=== PATIENT | male | born 1960 | race Caucasian/White ===

== ENCOUNTER 2017-01-14 10:51 | Day surgery (SDC) | payer OTHER ==
[~2017-01-14] VITALS: Ht 177.8 cm; Wt 107.6 kg
[~2017-01-14 10:51] MED LIST: ASPI81 PO; BYST5TAB2 PO; CLOP75 PO; FENO50TA PO; QUIN40TA10 PO; ROSU40 PO
[2017-01-14 11:39] VITALS: BP 139/76; PULSE 49; RESP 18; TEMP 98.3; O2SAT 97
[2017-01-14] MEDS ORDERED: QUIN40TA2 PO (11:43)
[2017-01-14] MEDS ORDERED: PRAV80TA2 PO (11:43)
[2017-01-14] MEDS ORDERED: NITR1SUB3 SL (11:43)
[2017-01-14] MEDS ORDERED: ASPI1TAB69 PO (11:43)
[2017-01-14] MEDS ORDERED: AMLO10TA2 PO (11:43)
[2017-01-14] MEDS ORDERED: ISOS30TA3 PO (11:43)
[2017-01-14] MEDS ORDERED: BYST5TAB2 PO (11:43)
[2017-01-14 11:54] LABS: AUTOMATED NEUTROPHIL # 3.4 TH/MM3 (1.8-7.7); BASOPHIL # 0.1 TH/MM3 (0-0.2); EOSINOPHIL # 0.2 TH/MM3 (0-0.4); HEMATOCRIT 42.1 % (39.0-51.0); HEMO FLAGS DIFF FINAL; LYMPH % 24.9 % (9.0-44.0); LYMPHOCYTE # 1.4 TH/MM3 (1.0-4.8); MEAN CORPUSCULAR HGB CONC 34.5 % (32.0-36.0); NEUT % 60.1 % (16.0-70.0); PLATELET COUNT 133 TH/MM3 (150-450); RED BLOOD COUNT 4.84 MIL/MM3 (4.50-5.90); RED CELL DISTRIBUTION WIDTH 13.2 % (11.6-17.2); WHITE BLOOD COUNT 5.7 TH/MM3 (4.0-11.0)
[2017-01-14] MEDS ORDERED: NS 1000P @30 MLS/HR (KVO) IV SCH (12:00)
[2017-01-14 12:06] LABS: APTT (PATIENT) 25.5 SEC (24.3-30.1); INTERNATIONAL NORMALIZED RATIO 1.2 RATIO; PROTHROMBIN TIME - PATIENT 12.9 SEC (9.8-11.6)
[2017-01-14 12:21] LABS: BICARBONATE 28.7 MEQ/L (21.0-32.0); POTASSIUM 4.2 MEQ/L (3.5-5.1)
[2017-01-14] MEDS ORDERED: IOHEXOL 350 MG/ML 100 ML BTL (for Cath Lab) OTHER ONE (13:27)
[2017-01-14] MEDS ORDERED: IOHEXOL 350 MG/ML 50 ML BTL (for Cath Lab) OTHER ONE (13:27)
[2017-01-14] MEDS ORDERED: HEPARIN-NS/PF INJ 500 ML ONE (13:38)
[2017-01-14] MEDS ORDERED: MIDAZOLAM HCL 2 MG/2 ML VIAL ONE (13:40)
[2017-01-14 17:03] LABS: BLOOD, URINE NEG (NEG); GLUCOSE,URINE NEG (NEG); KETONE, URINE NEG (NEG); NITRITE,URINE NEG (NEG); URINE COLOR LIGHT-YELLOW (YELLW/STRAW)
[2017-01-14 17:04] LABS: COMMENT (UR) CULT NOT INDICATED; CULTURE IF INDICATED CULT NOT INDICATED
--- NOTE | 2017-01-14 17:18 | PD.CAR.PN ---
CVT Progress Note Subjective/Hospital Course: Pt examined and chart reviewed. OR Friday. RISK SCORES About the STS Risk Calculator Procedure: CAB Only Risk of Mortality: 0.312% Morbidity or Mortality: 4.986% Long Length of Stay: 1.239% Short Length of Stay: 75.969% Permanent Stroke: 0.307% Prolonged Ventilation: 2.871% DSW Infection: 0.165% Renal Failure: 0.842% Reoperation: 2.461% Objective: Vital Signs Date Time Temp Pulse Resp B/P Pulse Ox O2 Delivery O2 Flow Rate FiO2 01/14/17 16:01 Room Air 01/14/17 11:39 98.3 49 18 139/76 97 Labs: Laboratory Tests Test 01/14/17 01/14/17 11:36 16:43 White Blood Count 5.7 TH/MM3 (4.0-11.0) Red Blood Count 4.84 MIL/MM3 (4.50-5.90) Hemoglobin 14.5 GM/DL (13.0-17.0) Hematocrit 42.1 % (39.0-51.0) Mean Corpuscular Volume 87.0 FL (80.0-100.0) Mean Corpuscular Hemoglobin 30.0 PG (27.0-34.0) Mean Corpuscular Hemoglobin 34.5 % Concent (32.0-36.0) Red Cell Distribution Width 13.2 % (11.6-17.2) Platelet Count 133 TH/MM3 (150-450) Mean Platelet Volume 7.7 FL (7.0-11.0) Neutrophils (%) (Auto) 60.1 % (16.0-70.0) Lymphocytes (%) (Auto) 24.9 % (9.0-44.0) Monocytes (%) (Auto) 11.0 % (0.0-8.0) Eosinophils (%) (Auto) 3.0 % (0.0-4.0) Basophils (%) (Auto) 1.0 % (0.0-2.0) Neutrophils # (Auto) 3.4 TH/MM3 (1.8-7.7) Lymphocytes # (Auto) 1.4 TH/MM3 (1.0-4.8) Monocytes # (Auto) 0.6 TH/MM3 (0-0.9) Eosinophils # (Auto) 0.2 TH/MM3 (0-0.4) Basophils # (Auto) 0.1 TH/MM3 (0-0.2) CBC Comment DIFF FINAL Differential Comment Prothrombin Time 12.9 SEC (9.8-11.6) Prothromb Time International 1.2 RATIO Ratio Activated Partial 25.5 SEC Thromboplast Time (24.3-30.1) Sodium Level 140 MEQ/L (136-145) Potassium Level 4.2 MEQ/L (3.5-5.1) Chloride Level 103 MEQ/L (98-107) Carbon Dioxide Level 28.7 MEQ/L (21.0-32.0) Anion Gap 8 MEQ/L (5-15) Blood Urea Nitrogen 24 MG/DL (7-18) Creatinine 1.06 MG/DL (0.60-1.30) Estimat Glomerular Filtration 72 ML/MIN (>89) Rate Random Glucose 113 MG/DL (74-106) Calcium Level 9.1 MG/DL (8.5-10.1) Urine Color LIGHT-YELLOW (YELLW/STRAW) Urine Turbidity CLEAR (CLEAR) Urine pH 7.0 (5.0-8.5) Urine Specific [place] 1.034 (1.002-1.035) Urine Protein NEG mg/dL (NEG-TRACE) Urine Glucose (UA) NEG mg/dL (NEG) Urine Ketones NEG mg/dL (NEG) Urine Occult Blood NEG (NEG) Urine Nitrite NEG (NEG) Urine Bilirubin NEG (NEG) Urine Urobilinogen LESS THAN 2.0 MG/DL (LESS THAN 2.0) Urine Leukocyte Esterase NEG (NEG) Urine RBC LESS THAN 1 /hpf (0-3) Urine WBC 1 /hpf (0-5) Microscopic Urinalysis Comment CULT NOT INDICATED Result Diagram: 01/14/17 1136 01/14/17 1136 Mariah Valdes MD Jan 14, 2017 17:18
--- NOTE | 2017-01-14 18:16 | MB ---
cc: OCTAVIO MCINTOSH, YANNICK BANKS MD,IDA GARCIA DATE OF CONSULTATION: 01/14/[address] Reagan. REASON FOR CONSULTATION Symptomatic coronary artery disease. HISTORY OF PRESENT ILLNESS Mr. Marie is a very pleasant 56-year-old gentleman with a known history of significant coronary artery disease status post previous myocardial infarction with resultant percutaneous intervention with angioplasty and stenting on two prior occasions who now presents with recurrent chest pain with minimal exertion and shortness of breath. Given his past history, he has undergone further workup including a treadmill Cardiolite and an eventual coronary angiogram today which reveals severe three-vessel coronary artery disease with mild LV dysfunction but otherwise relative preserved ventricular function. I am now being consulted for surgical revascularization therapy. At present time he remains pain free, hemodynamically stable with no evidence of ongoing ischemia. PAST MEDICAL HISTORY Significant for - 1. Coronary artery disease status post PCI and acute myocardial infarction as described above. 2. Acute myocardial infarction. 3. Hypertension 4. Dyslipidemia. 5. Mitral valve prolapse. PAST SURGICAL HISTORY Remarkable for coronary angiography with multiple angioplasties as described above. ALLERGIES THE PATIENT REPORTS NO KNOWN DRUG ALLERGIES. MEDICATIONS ON ADMISSION 1. Baby Aspirin 81 mg daily. 2. Nitroglycerin sublingual p.r.n. 3. Isosorbide mononitrate ER 30 mg daily. 4. Pravastatin 80 mg daily. 5. Amlodipine 10 mg daily. 6. Nebivolol 5 mg daily. 7. Quinapril 40 mg daily. SOCIAL HISTORY Denies any history of smoking, alcohol use or illicit drug use. FAMILY HISTORY Heavily significant for coronary artery disease. REVIEW OF SYSTEMS As above, all other parameters are negative. PHYSICAL EXAMINATION VITAL SIGNS: He is 178 cm tall, weighs 107 kg. Blood pressure is 139/76 with a heart rate of 52 which is regular, respiratory rate is 18 and he is afebrile. HEENT: Normocephalic, atraumatic. Pupils round and reactive. Extraocular muscles intact. NECK: No cervical lymphadenopathy, carotid bruits or JVD. CARDIOVASCULAR: Regular rate and rhythm. Normal S1, S2 without gallops or rubs. There is a 1/6 systolic ejection murmur. LUNGS: Clear to auscultation bilaterally with good air exchange. ABDOMEN: Soft, nontender, nondistended. Normoactive bowel sounds. No hepatosplenomegaly. EXTREMITIES: Bilateral lower extremity pulses are intact without cyanosis, clubbing or edema. No venous varicosities. NEUROLOGIC: Oriented, intact with no focal deficits. IMPRESSION 1. Severe two-vessel coronary artery disease. 2. History of previous myocardial infarction. 3. History of prior stenting. 4. Dyslipidemia. 5. Hypertension. 6. Significant family history of coronary disease. PLAN The angiogram findings as well as clinical scenario were discussed in detail with the patient and his today. Therapeutic options available including coronary artery bypass grafting with possible transmyocardial laser revascularization (TMR) was discussed. In reviewing the coronary angiography, the LAD is diffusely diseased distally but in the midsegment it appears to be a suitable target as the diagonal, the RPDA, as well as the RPLV. The OM branch and circumflex arteries are very diffusely diseased and may or may not be bypassable. This will be explored in the operating room. If it is deemed that it is not bypassable, certainly that area will be treated with laser revascularization to avoid future angina from that muscle as well as creation of neoangiogenesis. The risks and the complications and benefits of the surgical procedure were discussed in detail and all questions answered. They appeared to comprehend the given information and wished to proceed with the planned operation. We will proceed with the surgical procedure as described above on Friday as a first case basis. In the meantime, we will obtain vein mapping, carotid duplex, as well as PFTs. Thank you for allowing me to participate in the care of this patient. Yannick THOMPSON /5:11 PM /5:24 PM
--- NOTE | 2017-01-14 20:53 | RADRPT ---
EXAM DATE/TIME: 01/14/2017 20:44 [facility] COMPARISON: No previous studies available for comparison. INDICATIONS : Evaluate for pneumothorax, pneumonia and communicable diseases. Pre-op for open-heart surgery. MEDICAL HISTORY : Hypertension. SURGICAL HISTORY : None. ENCOUNTER: Initial ACUITY: 1 day PAIN SCORE: 0/10 LOCATION: Bilateral chest FINDINGS: PA and lateral views of the chest demonstrate the lungs to be symmetrically aerated without evidence of mass, infiltrate or effusion. A coronary artery stent catheter is visualized. The cardiomediastin al contours are unremarkable. Osseous structures are intact. CONCLUSION: No acute disease. Dima Blankenship MD on January 14, 2017 at 20:49 Board Certified Radiologist. This report was verified electronically.
--- NOTE | 2017-01-14 21:22 | RADRPT ---
EXAM DATE/TIME: 01/14/2017 19:52 [facility] COMPARISON: No previous studies available for comparison. INDICATIONS : Preop CABG. MEDICAL HISTORY : Hypertension. Myocardial infarction. CAD. SURGICAL HISTORY : Cardiac stents. Cardia angiography. ENCOUNTER: Initial ACUITY: 1 day PAIN SCORE: 0/10 LOCATION: Bilateral neck PEAK SYSTOLIC VELOCITIES (cm/sec): ICA/CCA RATIO: Right: 0.9 Left: 1.1 ICA: Right: 71 Left: 88 CCA: Right: 82 Left: 81 ECA: Right: 89 Left: 111 VERTEBRAL: Right: 38 antegrade Left: 44 antegrade Elevated flow velocities and ICA/CCA ratios have been found to correlate with increased degrees of vessel stenosis, calculated as percentage of diameter relative to a normal segment of distal ICA/CCA FINDINGS: RIGHT CAROTID: Mild calcified plaque at the carotid bifurcation. No significant stenosis is visualized. The wavefor ms are within normal limits. LEFT CAROTID: Mild noncalcified plaque at the bifurcation. No significant stenosis is visualized. The waveforms ar e within normal limits. VERTEBRAL ARTERIES: Antegrade flow is seen in both vertebral arteries. MISCELLANEOUS: None. CONCLUSION: 1. Mild atherosclerotic changes at both carotid bifurcations. 2. No focal high grade or hemodynamically significant stenosis. Saúl Chung MD on January 14, 2017 at 21:19 Board Certified Radiologist. This report was verified electronically.
--- NOTE | 2017-01-14 21:25 | RADRPT ---
EXAM DATE/TIME: 01/14/2017 19:03 [facility] COMPARISON: No previous studies available for comparison. INDICATIONS : Preop CABG. MEDICAL HISTORY : Myocardial infarction. Hypertension. CAD. SURGICAL HISTORY : Coronary stents. Cardiac angiography. ENCOUNTER: Initial ACUITY: 1 day PAIN SCORE: 0/10 LOCATION: Bilateral leg. TECHNIQUE: Venous ultrasound of the left and right leg was performed from the inguinal ligament to the proximal calf. Real-time, color Doppler and spectral tracing, compression and augmentation techniques were us ed. FINDINGS: RIGHT LEG: There is normal compressibility of the deep venous system from the inguinal region to the proximal ca lf. No echogenic clot is seen in the lumen of the common femoral, femoral, popliteal, and posterior tibial veins. There is a normal response of the venous system to proximal and distal augmentation an d respiration. LEFT LEG: There is normal compressibility of the deep venous system from the inguinal region to the proximal ca lf. No echogenic clot is seen in the lumen of the common femoral, femoral, popliteal, and posterior tibial veins. There is a normal response of the venous system to proximal and distal augmentation an d respiration. CONCLUSION: No evidence of DVT. Saúl Chung MD on January 14, 2017 at 21:21 Board Certified Radiologist. This report was verified electronically.
--- NOTE | 2017-01-14 21:32 | RADRPT ---
EXAM DATE/TIME: 01/14/2017 19:20 [facility] COMPARISON: No previous studies available for comparison. INDICATIONS : Preop CABG. MEDICAL HISTORY : Myocardial infarction. Hypertension. CAD. SURGICAL HISTORY : Cardiac stents. Caronoary angiography. ENCOUNTER: Initial ACUITY: 1 day PAIN SCORE: 0/10 LOCATION: Bilateral leg. GREATER SAPHENOUS VEIN THIGH: PROXIMAL: Right 6 mm Left 7 mm MID: Right 3 mm Left 5 mm DISTAL: Right 4 mm Left 6 mm CALF: PROXIMAL: Right 4 mm Left 4 mm MID: Right 4 mm Left 3 mm DISTAL: Right 3 mm Left 4 mm FINDINGS: The venous system of the lower extremities are patent by color Doppler imaging. Measurements of the leg veins (in mm) are listed above. CONCLUSION: Venous mapping as above Saúl Chung MD on January 14, 2017 at 21:30 Board Certified Radiologist. This report was verified electronically.
[2017-01-14 22:21] LABS: HEMOGLOBIN A1a 0.8 %; HEMOGLOBIN A1b 0.9 %; HEMOGLOBIN Ao 85.1 %; HEMOGLOBIN F 0.9 %; HEMOGLOBIN LA1C 1.9 %; HEMOGLOBIN P3 3.8 %
--- NOTE | 2017-01-15 20:30 | EKG ---
Date Performed: 01/14/2017 Time Performed: 11:48:10 PTAGE: 56 years EKG: Sinus bradycardia with sinus arrhythmia Poor R wave progression - probable normal variant B orderline ECG PREVIOUS TRACING : 08/06/2011 05.09 Compared to prior tracing no significant change DOCTOR: Henrietta Reagan Interpretating Date/Time 01/15/2017 20:28:29
--- NOTE | 2017-01-16 13:11 | MA ---
cc: IDA LO DATE 01/14/2017 INDICATIONS Angina pectoris class 3, intermediate probability nuclear myocardial perfusion study, coronary artery disease, history of multivessel coronary stenting. PROCEDURE 1. Retrograde left heart catheterization with left ventriculography and selective coronary angiography 2. Angiography of the left internal mammary artery and right internal mammary artery 3. Moderate sedation ACCESS SITE Right femoral artery EQUIPMENT USED 5 Moroccan pigtail catheter, 5 Moroccan JL4 and AR modified coronary artery catheters. MEDICATIONS Versed IV, Fentanyl IV CONTRAST Omnipaque 125 cc COMPLICATIONS None BLOOD LOSS Less than 10 cc METHOD OF HEMOSTASIS Manual compression RESULTS HEMODYNAMICS Heart rate 65 beats per minute Left ventricular end-diastolic pressure 50 mmHg Left ventricle 120/15 Aorta 120/70/93 LEFT VENTRICULOGRAPHY Ejection fraction 45%. Wall motion focal anterolateral hypokinesis. No mitral regurgitation. CORONARY ANGIOGRAPHY Left main coronary artery patent. Left anterior descending coronary artery has 80% focal stenosis in the proximal portion, 30% in-stent restenosis in the mid portion. Distal and apical has 70% sequential stenosis. The first diagonal artery has 80% ostial stenosis. Second diagonal artery is patent. Left circumflex artery has 80% stenosis in the proximal portion and 60% stenosis in the mid portion. OM-1 has 95% stenosis in the proximal portion and 70% sequential stenosis in the distal portion. Right coronary artery is a dominant vessel with 60% in-stent restenosis in the mid portion, 80% stenosis in the mid-distal portion. PDA has 70% proximal stenosis. PLV has 95% proximal stenosis. ARANA and JOIE are patent. DIAGNOSIS 1. Severe multivessel coronary artery disease. 2. Mild left ventricular systolic dysfunction consistent with ischemic cardiomyopathy DISPOSITION Mr. Marie was found to have evidence of severe multivessel coronary artery disease. Dr. Valdes will be consulted for the consideration of coronary artery bypass. MD MONTY Fernandez/JUJU /3:38 PM /12:49 PM MTDMonica
--- NOTE | 2017-01-23 13:09 | RSPPFT ---
DATE OF PROCEDURE: 01/14/17 COMMENTS: Spirometry shows FVC of 3.0 at 67% of predicted, FEV1 of 2.4 at 67%, FEV1/FVC ratio is normal. Flow is normal at FEF 25-75. Flow volume loop indicates a normal pattern. IMPRESSION: 1. Normal spirometry. 2. Post-bronchodilator study was not done.
--- NOTE | 2017-01-29 08:13 | MD ---
cc: IDA LO DISCHARGE SUMMARY Mr. Marie underwent cardiac catheterization on 01/14/2017. He was found to have severe multivessel coronary artery disease. He was seen by Dr. Valdes for coronary bypass consideration. He was discharged home on aspirin, statin, beta fredy and nitrate. He was discharged home in stable condition. He will be seen back for coronary bypass with Dr. Valdes next week. MD MONTY Fernandez/JAMAR /8:14 PM /8:04 AM DANIEL
== END 2017-01-14 21:08 | disposition home or self-care (01) ==
LOC: HCAT 10:51 → HDIC 10:51 → HCAT 21:08
PROVIDERS: ATTEND Internal Medicine Interventional Cardiology
DX: I25.111 Atherosclerotic heart disease of native coronary artery with angina pectoris with documented spasm (principal); I25.2 Old myocardial infarction; I11.9 Hypertensive heart disease without heart failure; I51.89 Other ill-defined heart diseases; E78.5 Hyperlipidemia, unspecified; I34.1 Nonrheumatic mitral (valve) prolapse; Z79.82 Long term (current) use of aspirin; Z95.5 Presence of coronary angioplasty implant and graft; Z82.49 Family history of ischemic heart disease and other diseases of the circulatory system
CPT/HCPCS: 71020; 80048; 81001; 83036; 85025; 85610; 85730; 87641; 93005; 93458; 93880; 93970; 93998; 94010; C1769; C1893; J1644; J2250; J3010; J7030; Q9967

== ENCOUNTER 2017-01-16 16:40 | Inpatient (IN) | payer OTHER ==
[~2017-01-16] VITALS: Ht 177.8 cm; Wt 107.6 kg
[~2017-01-16 16:40] MED LIST changes: +AMLO10TA2 PO; +ASPI1TAB69 PO; -ASPI81 PO; -CLOP75 PO; -FENO50TA PO; +ISOS30TA3 PO; +NITR1SUB3 SL; +PRAV80TA2 PO; -QUIN40TA10 PO; +QUIN40TA2 PO; -ROSU40 PO
[2017-01-20] VITALS (16 sets, daily range): BP systolic 121–148; BP diastolic 55–84; PULSE 48–68; RESP 13–20; TEMP 97.4–98.2; O2SAT 89–99
[2017-01-20] MEDS ORDERED: ARTIFICIAL TEARS OPTH OINT 3.5 APPLIC/3.5 GM TUBO ONE (05:00)
[2017-01-20] MEDS ORDERED: MAGNESIUM SULFATE 1000 MG/2 ML VIAL (PED) IV ONE (05:00)
[2017-01-20] MEDS ORDERED: HEPARIN SODIUM - SQ 10,000 UNITS/ML VIAL SQ ONE (05:00)
[2017-01-20] MEDS ORDERED: GLYCOPYRROLATE 0.2 MG/ML VIAL IV ONE (05:00)
[2017-01-20] MEDS ORDERED: DEXTROSE 5% IN WATER 100ML INJ 100 ML IV ONE (05:00)
[2017-01-20] MEDS ORDERED: AMINOCAPROIC ACID INJ 250 MG/ML 20 ML VIAL IV ONE (05:00)
[2017-01-20] MEDS ORDERED: NITROGLYCERIN-DEXTROSE INJ 250 ML IV ONE (05:00)
[2017-01-20] MEDS ORDERED: METOPROLOL TARTRATE 25 MG TAB PO SCH (06:00)
[2017-01-20] MEDS: LACTATED RINGER'S 1000 ML IV SCH (06:00)
[2017-01-20] MEDS: SODIUM CHLORID 0.9% 500 ML IV SCH ×2 (06:00→22:40)
[2017-01-20] MEDS ORDERED: METOPROLOL TARTRATE 25 MG TAB PO PRN (06:00)
[2017-01-20] MEDS ORDERED: INSULIN HUMAN REGULAR 1,000 UNITS/10 ML VIAL SQ PRN (06:00)
[2017-01-20] MEDS ORDERED: SODIUM CHLORIDE 0.9% FLUSH 5 ML FLUSH IV FLUSH PRN ×2 (06:00→12:00)
[2017-01-20] MEDS ORDERED: ceFAZolin 2 GM PREMIX 50 ML IV SCH (06:00)
[2017-01-20] MEDS ORDERED: HEPARIN SODIUM - IV 10,000 UNITS/10 ML VIAL ONE (06:52)
[2017-01-20] MEDS ORDERED: VANCOMYCIN HCL 1000 MG VIAL ONE (06:52)
[2017-01-20] MEDS ORDERED: HEPARIN SODIUM - SQ 10,000 UNITS/ML VIAL ONE (06:52)
[2017-01-20] MEDS ORDERED: POTASSIUM CHLORIDE 20 MEQ/10 ML VIAL ONE ×2 (07:09)
[2017-01-20] MEDS ORDERED: PAPAVERINE 60 MG-NITROGLYCERIN 100 MCG-DILTIAZEM 100 MG in NS 100 ML IRRIGATION SCH ×4 (07:30)
[2017-01-20] MEDS ORDERED: CHLORHEXIDINE GLUCONATE 4% SOLN 120 ML BTL TOPICAL SCH (07:30)
[2017-01-20] MEDS ORDERED: INSULIN REGULAR 100 UNITS in NS 100 ML IV SCH (07:30)
[2017-01-20] MEDS ORDERED: CEFAZOLIN 500 MG in NS IRR BTL 500 ML IRRIGATION SCH (07:30)
[2017-01-20] MEDS: SODIUM CHLORIDE 0.9% FLUSH 5 ML FLUSH IV FLUSH SCH ×3 (09:00→21:17)
[2017-01-20] MEDS ORDERED: LACTATED RINGER'S 1000 ML INJ 500 ML IV PRN (11:51)
[2017-01-20] MEDS: DOBUTamine PREMIX DRIP 250 ML IV SCH (11:51)
[2017-01-20] MEDS ORDERED: DEXTROSE 50% IN WATER 50 ML VIAL(D50) IV PUSH PRN (12:00)
[2017-01-20] MEDS ORDERED: POTASSIUM CHLOR 20 MEQ PREMIX 100 ML IV PRN ×3 (12:00)
[2017-01-20] MEDS ORDERED: DEXMEDETOMIDINE INJ 50 ML IV SCH (12:00)
[2017-01-20] MEDS ORDERED: ALBUMIN HUMAN 5% 12.5 GM/250 ML BOTTLE IV PRN (12:00)
[2017-01-20] MEDS ORDERED: PHENYLEPHRINE INJ 40 MG in DEXTROSE 5% IN WATE 500 ML INJ 496 ML IV SCH ×2 (12:00)
[2017-01-20] MEDS ORDERED: MORPHINE SULFATE 4 MG/ML INJ IV PRN (12:00)
[2017-01-20] MEDS ORDERED: NITROGLYCERIN-DEXTROSE INJ 250 ML IV SCH (12:00)
[2017-01-20] MEDS ORDERED: DOPamine INJ PREMIX 500 ML IV SCH (12:00)
[2017-01-20] MEDS ORDERED: ONDANSETRON HCL 4 MG/2 ML VIAL IV PUSH PRN (12:00)
[2017-01-20] MEDS ORDERED: CALCIUM CHLORIDE 10% 1 GRAM/10 ML VIAL IV PRN (12:00)
[2017-01-20] MEDS ORDERED: hydrALAZINE HCL 20 MG/ML VIAL IV PRN (12:00)
[2017-01-20] MEDS ORDERED: MAGNESIUM SULFATE INJ 2 GM in SODIUM CHLORIDE 0.9% INJ 100 ML IV PRN ×4 (12:00)
[2017-01-20] MEDS ORDERED: EPINEPHrine (1:1000) INJ 4 MG in DEXTROSE 5% IN WATER INJ 246 ML IV SCH ×2 (12:00)
[2017-01-20] MEDS ORDERED: POTASSIUM CHLORIDE 20 MEQ CONTROLLED RELEASE TAB PO PRN ×2 (12:00)
[2017-01-20] MEDS ORDERED: ACETAMINOPHEN 325 MG TAB PO PRN (12:00)
[2017-01-20] MEDS ORDERED: ACETAMINOPHEN 650 MG SUPP RECTAL PRN (12:00)
[2017-01-20] MEDS ORDERED: INSULIN REGULAR (IV INFUSION) 100 UNITS in SODIUM CHLORIDE 0.9% INJ 99 ML IV SCH (12:00)
[2017-01-20] MEDS ORDERED: CLEVIDIPINE INJ 50 ML IV SCH (12:00)
[2017-01-20] MEDS ORDERED: METOPROLOL TARTRATE 5 MG/5 ML VIAL IV PUSH PRN (12:00)
[2017-01-20] MEDS ORDERED: MEPERIDINE HCL 25 MG/ML VIAL IV PRN (12:00)
[2017-01-20] MEDS ORDERED: Post-op Orders (for Pharmacy) MISC OTHER ONE (12:00)
--- NOTE | 2017-01-20 12:00 | PD.OP ---
cc: Mariah Valdes MD; Henrietta Reagan MD Operative Report Date of Surgery: Jan 20, 2017 Preoperative Diagnosis: Postoperative Diagnosis: Procedure: 1. Off-pump Coronary Artery Bypass Grafting x 4 with left internal mammary artery (ARANA) to left anterior descending (LAD), reverse saphenous vein graft to Diagonal 1, sequential reverse saphenous vein graft to the RPDA and to the RPLB branches of the RCA 2. Right Leg Endoscopic Vein Mertens 3. Transmyocardial Laser Revascularization (Lateral Wall) 4. Intraoperative Vein Mapping. . Surgeon: Mariah Valdes Passenger Locomotive Engineer(s): Carlotta Borja Operation and Findings: PREPROCEDURE DIAGNOSES 1. Severe Multi Vessel Coronary Artery Disease 2. In-stent Restenosis 3. Mild Left Ventricular Dysfunction POSTPROCEDURE DIAGNOSES Same SURGICAL PROCEDURE 1. Off-pump Coronary Artery Bypass Grafting x 4 with left internal mammary artery (ARANA) to left anterior descending (LAD), reverse saphenous vein graft to Diagonal 1, sequential reverse saphenous vein graft to the RPDA and to the RPLB branches of the RCA 2. Right Leg Endoscopic Vein Mertens 3. Transmyocardial Laser Revascularization (Lateral Wall) 4. Intraoperative Vein Mapping. SURGEON Mariah Valdes MD CLOTH COLORS EXAMINER MIGUEL Us, [facility] ANESTHESIA General endotracheal ENTRY LEVEL AUTOMOTIVE TECHNICIAN GE[place]IA Wright MD PREPARATION ChloraPrep. COUNTS Needle, sponge, and instrument counts were correct. DRAINS Two 32-Thai mediastinal tubes. COMPLICATIONS None. INDICATIONS FOR PROCEDURE The patient is a 56-year-old presenting with chest pain. Patient was noted to have multi-vessel coronary artery disease with mild LV dysfunction. The patient is being brought to the operating room for surgical revascularization therapy. PROCEDURE Patient was brought to the operating room and placed supine on the OR table. Following the induction of adequate general endotracheal anesthesia and placement of appropriate monitoring devices, intraoperative vein mapping was performed which revealed suitable-caliber conduit in the right lower extremity. The patient was then prepped and draped in standard sterile fashion. Next, 2500 units of intravenous heparin was given. The right greater saphenous vein was harvested endoscopically. This appeared to be a good-caliber conduit. Simultaneously, a median sternotomy was performed and the left internal mammary artery dissected free off the posterior sternal table. The patient was systemically heparinized and anticoagulation monitored by serial ACT measurements. The internal mammary artery had good pulsatile flow in it and was a decent-caliber conduit. The pericardium was then divided in the midline, the cradle created and targets analyzed. At this point, all anastomoses were performed in a beating-heart fashion using the Maquet stabilizing system. The left internal mammary artery was anastomosed to the mid LAD in an end-to-side fashion using 7-0 Prolene. Segment of saphenous vein graft was then anastomosed to the diagonal 1 in an end-to-side fashion using 7-0 Prolene. The next segment was anastomosed sequentially to the RPDA in a uinz-te-dica fashion and to the RPLB in an end-to-side fashion using 7-0 Prolene. The OM/Circumflex territory was explored and the OM1 was noted to be very small and heavily calcified throughout its course, making it non-bypassable. The proximal anastomoses were then constructed to the ascending aorta in a running manner using 6-0 Prolene. All anastomotic sites were inspected and appeared to be hemostatic and patent. TMR was performed to the lateral wall in the Circumflex/OM territory. 13 transmural channels were created using the Cryolife probe. Protamine solution was given. Strict hemostasis was assured. The closure was undertaken. 2 chest tubes were placed. The pericardium was reapproximated in the midline. The sternum was approximated using sternal wires. The muscular and fascial layer were then closed in 3 layers. The endoscopic vein harvest site was closed in 2 layers. The patient tolerated the procedure well and was transferred to CVICU in stable condition. Mariah Valdes MD Jan 20, 2017 12:00
[2017-01-20] MEDS ORDERED: fentaNYL CITRATE 1000 MCG/20 ML VIAL ONE (12:38)
[2017-01-20] MEDS ORDERED: MIDAZOLAM HCL 5 MG/5 ML VIAL ONE (12:38)
--- NOTE | 2017-01-20 12:58 | RADRPT ---
EXAM DATE/TIME: 01/20/2017 12:38 [facility] COMPARISON: CHEST PA & LAT, January 14, 2017, 20:44. INDICATIONS : Post op CABG. MEDICAL HISTORY : Hypertension. SURGICAL HISTORY : CABG. ENCOUNTER: Initial ACUITY: 1 day PAIN SCORE: Non-responsive. LOCATION: Bilateral chest FINDINGS: A single view of the chest demonstrates interval surgery with intact median sternotomy wires. Left-si ded thoracostomy tube without pneumothorax. Mediastinal drain is present. Right IJ central venous cat heter projects over the central venous system. Endotracheal tube is appropriately positioned above th e jose. Nasogastric tube crosses the GE junction with the tip in the proximal stomach. Heart size is prominent. Increased interstitial markings are characteristic of some degree of vascula r congestion or volume overload. CONCLUSION: 1. Postoperative changes with intact median sternotomy wires. Appropriate position of life support tu bes. 2. Cardiomegaly with interstitial prominence characteristic of some degree of vascular congestion or volume overload. No pneumothorax. Tate Khan MD on January 20, 2017 at 12:54 Board Certified Radiologist. This report was verified electronically.
[2017-01-20] MEDS: ACETAMINOPHEN 1000 MG/100 ML VIAL IV SCH ×3 (13:18→23:09)
[2017-01-20] MEDS ORDERED: SODIUM CHLORIDE 0.9% INJ 100 ML IV ONE (13:26)
[2017-01-20] MEDS ORDERED: LACTATED RINGER'S 1000 ML INJ 2,000 ML IV ONE (13:26)
[2017-01-20] MEDS ORDERED: PROTAMINE SULFATE 250 MG/25 ML VIAL IV ONE (13:26)
[2017-01-20] MEDS ORDERED: NORMOSOL R INJ 2,000 ML IV ONE (13:26)
[2017-01-20] MEDS ORDERED: SODIUM CHLORID 0.9% 500 ML INJ 500 ML IV ONE (13:26)
[2017-01-20] MEDS ORDERED: SODIUM CHLOR 0.9% 250 ML INJ 250 ML IV ONE (13:26)
[2017-01-20] MEDS: KETOROLAC TROMETHAMINE 30 MG/ML (IVP) VIAL IV PUSH PRN ×2 (13:30→21:16)
[2017-01-20] MEDS: CALCIUM CHLORIDE INJ 1 GM in SODIUM CHLORIDE 0.9% INJ 100 ML IV PRN ×2 (14:31→17:24)
[2017-01-20] MEDS ORDERED: RESP: ALBUTEROL 2.5 MG/IPRATROPIUM 0.5 MG NEB (PRN) NEB (15:00)
[2017-01-20] MEDS ORDERED: RESP: RACEPINEPHRINE 2.25% 0.5 ML NEB NEB PRN (15:00)
[2017-01-20] MEDS: ceFAZolin 2 GM PREMIX 50 ML IV SCH ×2 (16:02→23:09)
[2017-01-20] MEDS: RESP: ALBUTEROL 2.5 MG/IPRATROPIUM 0.5 MG NEB (SCH) NEB ×2 (16:05→20:52)
[2017-01-20] MEDS: AMIODARONE 200 MG TAB PO SCH (21:16)
[2017-01-20] MEDS: oxyCODONE/ACETAMINOPHEN 5 MG/325 MG TAB PO PRN (23:09)
[2017-01-21] VITALS (22 sets, daily range): BP systolic 128–159; BP diastolic 68–90; PULSE 55–82; RESP 16–22; TEMP 97.3–99.6; O2SAT 91–95
[2017-01-21] MEDS: DOBUTamine PREMIX DRIP 250 ML IV SCH (03:28)
[2017-01-21] MEDS: RESP: ALBUTEROL 2.5 MG/IPRATROPIUM 0.5 MG NEB (SCH) NEB ×4 (03:33→19:53)
[2017-01-21] MEDS: oxyCODONE/ACETAMINOPHEN 5 MG/325 MG TAB PO PRN ×6 (03:44→20:49)
[2017-01-21] MEDS: LACTATED RINGER'S 1000 ML IV SCH (04:55)
[2017-01-21 05:08] LABS: HEMATOCRIT 35.7 % (39.0-51.0); MEAN CELL VOLUME 85.7 FL (80.0-100.0); MEAN CORPUSCULAR HEMOGLOBIN 29.4 PG (27.0-34.0); MEAN CORPUSCULAR HGB CONC 34.3 % (32.0-36.0); PLATELET COUNT 139 TH/MM3 (150-450); RED BLOOD COUNT 4.16 MIL/MM3 (4.50-5.90); RED CELL DISTRIBUTION WIDTH 13.3 % (11.6-17.2); REVIEW FLAG FINAL; WHITE BLOOD COUNT 14.1 TH/MM3 (4.0-11.0)
[2017-01-21 05:19] LABS: BICARBONATE 24.3 MEQ/L (21.0-32.0); MAGNESIUM 1.7 MG/DL (1.5-2.5); POTASSIUM 4.3 MEQ/L (3.5-5.1)
--- NOTE | 2017-01-21 05:49 | RADRPT ---
EXAM DATE/TIME: 01/21/2017 05:11 [facility] COMPARISON: CHEST SINGLE AP, January 20, 2017, 12:38. INDICATIONS : Post CABG. MEDICAL HISTORY : Hypertension. SURGICAL HISTORY : CABG. ENCOUNTER: Subsequent ACUITY: 2 days PAIN SCORE: 0/10 LOCATION: Bilateral chest FINDINGS: Right jugular line, mediastinal tube and left-sided chest tube are noted. The endotracheal tube has b een removed as well as the enteric tube. I do not see a pneumothorax. The lungs are clear. Cardiomega ly. CONCLUSION: Clear lungs. Marty Wayne MD on January 21, 2017 at 5:47 Board Certified Radiologist. This report was verified electronically.
[2017-01-21] MEDS: PANTOPRAZOLE SOD 40 MG DELAYED RELEASE TAB PO SCH (06:00)
[2017-01-21] MEDS: ACETAMINOPHEN 1000 MG/100 ML VIAL IV SCH (06:00)
[2017-01-21] MEDS: ceFAZolin 2 GM PREMIX 50 ML IV SCH ×3 (08:30→23:26)
[2017-01-21] MEDS ORDERED: MAGNESIUM SULFATE 1 GM PREMIX 100 ML IV ONE (09:00)
[2017-01-21] MEDS ORDERED: DEXTROSE 50% IN WATER 50 ML VIAL(D50) IV PRN (09:00)
[2017-01-21] MEDS ORDERED: GLUCAGON 1 MG/ML VIAL OTHER PRN (09:00)
[2017-01-21] MEDS: PRAVASTATIN SOD 80 MG TAB PO SCH (09:00)
[2017-01-21] MEDS ORDERED: SOD PHOSPHATE/SOD BIPHOSPHATE (ADULT) ENEMA 133ML RECTAL PRN (09:00)
[2017-01-21] MEDS ORDERED: BISACODYL 10 MG SUPP RECTAL PRN (09:00)
--- NOTE | 2017-01-21 09:10 | PD.CAR.PN ---
CVT Progress Note CVT: POD #: 1 Subjective/Hospital Course: 56/ male s/p recent heart cath for unstable angina , hx of PCI stents LAD/ RCA PMH : CAD/ [place] GE[place], HTN, HLP EF 45 surgery : Off-pump Coronary Artery Bypass Grafting x 4 with left internal mammary artery (ARANA) to left anterior descending (LAD), reverse saphenous vein graft to Diagonal 1, sequential reverse saphenous vein graft to the RPDA and to the RPLB branches of the RCA, Right Leg Endoscopic Vein [place], Transmyocardial Laser Revascularization (Lateral Wall) 01/21 extubated post surgery, was very sleepy , required short course of Bipap had episode of nonsustained Vtach , now sinus joshua , on po amiodarone eval to start BB this pm ECG noted, mild st elevation lateral leads / 2/2 pericarditis / recent TMR gentle diuresis , will transfer to stepdown Objective: GENERAL: SKIN: Warm and dry./ prevena to chest , incision intact and well approximated right leg HEAD: Normocephalic. EYES: No scleral icterus. No injection or drainage. NECK: Supple, trachea midline. No JVD or lymphadenopathy. CARDIOVASCULAR: Regular rate and rhythm without murmurs, gallops, or rubs. RESPIRATORY: diminished in bases Breath sounds equal bilaterally. No accessory muscle use. chest tube to wall suction, no air leak / drained 200cc/ 12 hrs GASTROINTESTINAL: Abdomen soft, non-tender, nondistended. MUSCULOSKELETAL: No cyanosis, or edema. BACK: Nontender without obvious deformity. No CVA tenderness. Vital Signs Date Time Temp Pulse Resp B/P Pulse Ox O2 Delivery O2 Flow Rate FiO2 01/21/17 07:47 16 01/21/17 07:27 16 01/21/17 07:24 94 Nasal Cannula 5.00 01/21/17 07:01 99.0 58 16 131/74 95 01/21/17 03:24 98.0 59 17 128/82 94 146/68 01/21/17 03:24 55 01/20/17 23:21 98.2 48 15 138/55 94 121/60 01/20/17 23:21 52 01/20/17 20:30 92 Nasal Cannula 5.00 01/20/17 19:20 98.0 60 17 143/67 94 148/73 01/20/17 19:00 60 01/20/17 18:15 56 01/20/17 17:11 60 01/20/17 16:06 68 01/20/17 15:13 97.4 60 17 134/66 92 01/20/17 15:10 59 01/20/17 14:45 99 Nasal Cannula 4.00 01/20/17 14:45 Nasal Cannula 4 99 01/20/17 14:37 94 40 01/20/17 14:06 14 01/20/17 13:47 94 45 01/20/17 12:42 89 100 01/20/17 12:39 97.6 60 13 136/67 91 01/20/17 12:34 91 100 Labs: Laboratory Tests Test 01/21/17 04:43 White Blood Count 14.1 TH/MM3 (4.0-11.0) Red Blood Count 4.16 MIL/MM3 (4.50-5.90) Hemoglobin 12.3 GM/DL (13.0-17.0) Hematocrit 35.7 % (39.0-51.0) Mean Corpuscular Volume 85.7 FL (80.0-100.0) Mean Corpuscular Hemoglobin 29.4 PG (27.0-34.0) Mean Corpuscular Hemoglobin 34.3 % Concent (32.0-36.0) Red Cell Distribution Width 13.3 % (11.6-17.2) Platelet Count 139 TH/MM3 (150-450) Mean Platelet Volume 7.8 FL (7.0-11.0) Sodium Level 136 MEQ/L (136-145) Potassium Level 4.3 MEQ/L (3.5-5.1) Chloride Level 104 MEQ/L (98-107) Carbon Dioxide Level 24.3 MEQ/L (21.0-32.0) Anion Gap 8 MEQ/L (5-15) Blood Urea Nitrogen 20 MG/DL (7-18) Creatinine 1.11 MG/DL (0.60-1.30) Estimat Glomerular Filtration 69 ML/MIN (>89) Rate Random Glucose 112 MG/DL (74-106) Calcium Level 8.2 MG/DL (8.5-10.1) Magnesium Level 1.7 MG/DL (1.5-2.5) Result Diagram: 01/21/17 0443 3/21/17 0443 Telemetry: sinus joshua (1) Coronary artery disease (2) cabgx 5, TMR Plan: ASA, plavix , statin, amiodarone pulm toileting nebs, ezpap , acapella OOB ambulate leave chest tubes in (3) Hyperlipemia Plan: statin (4) Obstructive sleep apnea Plan: pt to use home CPAP machine at night Cecelia Conti Jan 21, 2017 09:10
--- NOTE | 2017-01-21 09:32 | HHI.FF ---
Face to Face Verification Diagnosis: (1) Coronary artery disease (2) Hyperlipemia (3) Obstructive sleep apnea (4) cabgx 5, TMR Physical Therapy Order: Evaluate and Treat Home Health Nursing Order: Signs/symptoms of disease process Wound care and dressing changes Nursing assessment with vital signs Instructions: Heart and Vascular Surgery patients *Special attention to sternal dressing Mandatory frequency Assess and evaluation, 4 days in a row The next week 3X week 2 times a week for 4 weeks 1 time a week for 5 weeks Schedule Heart and Vascular patients for full 60 day certification period Initial visit Review Open Heart Surgery Discharge Instructions (Sternal precautions, Activity, Elastic hose, Incision care, Driving, Incentive spirometry, Smoking, [place], Work and other) Need Betadine to paint incision Medication reconciliation Importance of follow up care/ check on appointments Make calendar record temperature daily When to call [facility] nurse, review instructions, phone list Incentive Spirometry, demonstration Visit 1- Begin discharge instruction for patient family and/ or caregiver using teach back method- Signs and symptoms of infection Disease characteristics Medicines and side effects Foods and nutrition/ appetite Infection control/ hand washing/ hygiene Visit 2- Continue teaching Discharge instructions- include additional information on smoking cessation , sternal dressing (sternal vac) Visit 3- Continue teaching- Cough and deep breathing, incision monitoring. Choose my plate Visit 4- Continue teaching- Discuss limitations Discuss how they are feeling Discuss progress toward goals Incentive spirometry Q1 hr x 10, while awake, also use acapella device hourly whole awake Sternal Breast Bone Precautions: NO pushing or pulling, ( pt must use sternal pillow to support chest with all activities and with coughing ( takes up to 3 months breast bone to heal ) All females to wear sternal bra , launder as needed Daily incision care: ok to shower daily, no tub bath. Wash all incisions with liquid dial soap, clean wash cloth to each site, rinse and pat dry. Observe for any signs of infection, such as drainage which is dark yellow, lino, green or foul smelling. Immediately report to the surgeon any drainage from the chest incision, or legs, and for any abnormal drainage from the chest tube sites. Notify surgeon if any temp >101.5 degrees F. When specialty dressing removed/ or if you do not have one, continue to shower daily as above, then rinse and pat incision dry and paint with betadine daily x 5 days. Allow steri strips to fall off if you have any. Avoid lotions, creams, salves, oils, etc. for the first month Please see attached forms for additional instructions regarding post Open Heart specialty wound vacuum dressings. JONATHON or Prevena , Dressing to be removed by Nursing staff on __01/27/[address] Berman patients , please obtain CBC, BMP, PA & Lat CXR in 2 weeks, results to Dr. Berman ( prescription will be given) ( ) (Tele: [phone]) , Valve replacement pts will need 2decho in 2 weeks with results to Dr. Berman . Please obtain 2 d echo at your traffic lieutenant office if possible F/U appointment: as per DC instructions: PCP in 2 weeks, CV surgeon 2 weeks, Floor Care Specialist 3-4 weeks For any questions regarding incisions/ dressing / meds / post op care or above Symptoms, Friday 8am-5pm Heart & Vascular Surgery Office ( Dr. Valdes & Dr. Berman), After Hours / Nights (5pm -8am) Weekends and Holidays Please call [facility] ([facility]) Charge Nurse I have seen patient Lei Marie on 01/21/17. My clinical findings support the need for the requested home health care services because: Deconditioned w/ increased weakness I certify that my clinical findings support that this patient is homebound because: Post-op weakness Cecelia Conti Jan 21, 2017 09:32
[2017-01-21] MEDS: ASPIRIN 81 MG CHEW TAB PO SCH (09:34)
[2017-01-21] MEDS: CLOPIDOGREL 75 MG TAB PO SCH (09:34)
[2017-01-21] MEDS: SODIUM CHLORIDE 0.9% FLUSH 5 ML FLUSH IV FLUSH SCH ×2 (09:36→20:52)
[2017-01-21] MEDS: AMIODARONE 200 MG TAB PO SCH ×2 (09:36→20:52)
[2017-01-21] MEDS: amLODIPine BESYLATE 5 MG TAB PO SCH (09:56)
[2017-01-21] MEDS: METOCLOPRAMIDE HCL 10 MG/2 ML VIAL IV SCH ×3 (09:56→21:54)
[2017-01-21] MEDS: MULTIVITAMINS/MINERALS THERAPEUTIC TAB PO SCH (09:57)
[2017-01-21] MEDS: MAGNESIUM HYDROXIDE SUSP 30 ML CUP PO SCH (09:57)
[2017-01-21] MEDS: DOCUSATE SODIUM 100 MG CAP PO SCH ×2 (09:59→20:48)
[2017-01-21] MEDS ORDERED: POTASSIUM CHLORIDE 10 MEQ CONTROLLED RELEASE TAB PO ONE (10:00)
[2017-01-21] MEDS ORDERED: FUROSEMIDE 20 MG/2 ML VIAL IV PUSH ONE (10:00)
--- NOTE | 2017-01-21 10:01 | EKG ---
Date Performed: 01/21/2017 Time Performed: 05:17:46 PTAGE: 56 years EKG: Sinus rhythm nonspecific st changes Abnormal ECG PREVIOUS TRACING : 01/14/2017 11.48 DOCTOR: Maksim Huff Interpretating Date/Time 01/21/2017 09:59:45
[2017-01-21] MEDS: INSULIN ASPART SUPPLEMENTAL SCALE SQ SCH ×4 (10:16→21:55)
[2017-01-21] MEDS: METOPROLOL TARTRATE 25 MG TAB PO SCH ×2 (12:00→20:48)
[2017-01-21] MEDS ORDERED: PILL SPLITTER OTHER PRN (12:00)
[2017-01-21] MEDS: SENNOSIDES 8.6 MG TAB PO SCH (20:49)
[2017-01-22] VITALS (33 sets, daily range): BP systolic 113–150; BP diastolic 72–98; PULSE 64–102; RESP 16–18; TEMP 98.5–99.3; O2SAT 93–99
[2017-01-22] MEDS: oxyCODONE/ACETAMINOPHEN 5 MG/325 MG TAB PO PRN ×3 (02:09→21:22)
[2017-01-22] MEDS: INSULIN ASPART SUPPLEMENTAL SCALE SQ SCH ×5 (02:09→21:23)
[2017-01-22] MEDS: METOCLOPRAMIDE HCL 10 MG/2 ML VIAL IV SCH (03:55)
[2017-01-22 04:30] LABS: AUTOMATED NEUTROPHIL # 13.9 TH/MM3 (1.8-7.7); BASOPHIL % 0.2 % (0.0-2.0); EOSINOPHIL % 0.1 % (0.0-4.0); HEMATOCRIT 34.7 % (39.0-51.0); LYMPHOCYTE # 1.6 TH/MM3 (1.0-4.8); MEAN CELL VOLUME 87.2 FL (80.0-100.0); MEAN CORPUSCULAR HEMOGLOBIN 29.5 PG (27.0-34.0); MEAN CORPUSCULAR HGB CONC 33.9 % (32.0-36.0); MONO % 14.4 % (0.0-8.0); NEUT % 76.3 % (16.0-70.0); PLATELET COUNT 130 TH/MM3 (150-450); RED BLOOD COUNT 3.98 MIL/MM3 (4.50-5.90); RED CELL DISTRIBUTION WIDTH 13.1 % (11.6-17.2); WHITE BLOOD COUNT 18.2 TH/MM3 (4.0-11.0)
[2017-01-22 04:36] LABS: HEMO FLAGS AUTO DIFF
[2017-01-22 04:53] LABS: BICARBONATE 29.7 MEQ/L (21.0-32.0); MAGNESIUM 2.1 MG/DL (1.5-2.5); POTASSIUM 4.1 MEQ/L (3.5-5.1)
[2017-01-22] MEDS: LACTATED RINGER'S 1000 ML IV SCH (06:00)
[2017-01-22] MEDS: PANTOPRAZOLE SOD 40 MG DELAYED RELEASE TAB PO SCH (06:23)
[2017-01-22] MEDS: RESP: ALBUTEROL 2.5 MG/IPRATROPIUM 0.5 MG NEB (SCH) NEB ×3 (06:35→19:56)
[2017-01-22 07:15] LABS: BANDS 6 % (0-6); BASOPHILS 1 % (0-2); NEUTROPHIL # MANUAL DIFF 12.7 TH/MM3 (1.8-7.7); POLYS (SEG NEUTROPHILS) 64 % (16-70); WBC DIFF SAMPLE 100
[2017-01-22 07:16] LABS: PLATELET ESTIMATE SMEAR LOW (NORMAL); PLATELET MORPHOLOGY NORMAL (NORMAL); SCAN/DIFF FINAL DIFF MANUAL
[2017-01-22] MEDS: amLODIPine BESYLATE 5 MG TAB PO SCH (09:25)
[2017-01-22] MEDS: POLYETHYLENE GLYCOL 17 GM PKG PO SCH (09:25)
[2017-01-22] MEDS: METOPROLOL TARTRATE 25 MG TAB PO SCH ×2 (09:25→21:23)
[2017-01-22] MEDS: DOCUSATE SODIUM 100 MG CAP PO SCH ×2 (09:25→21:22)
[2017-01-22] MEDS: ASPIRIN 81 MG CHEW TAB PO SCH (09:25)
[2017-01-22] MEDS: MAGNESIUM HYDROXIDE SUSP 30 ML CUP PO SCH (09:26)
[2017-01-22] MEDS: PRAVASTATIN SOD 80 MG TAB PO SCH (09:26)
[2017-01-22] MEDS: MULTIVITAMINS/MINERALS THERAPEUTIC TAB PO SCH (09:26)
[2017-01-22] MEDS: CLOPIDOGREL 75 MG TAB PO SCH (09:26)
[2017-01-22] MEDS: AMIODARONE 200 MG TAB PO SCH ×2 (09:26→21:23)
[2017-01-22] MEDS: SODIUM CHLORIDE 0.9% FLUSH 5 ML FLUSH IV FLUSH SCH ×2 (09:27→21:23)
[2017-01-22] MEDS ORDERED: METOPROLOL TARTRATE 25 MG TAB PO ONE (10:15)
[2017-01-22] MEDS ORDERED: BUMETANIDE INJ 1 MG/4 ML VIAL IV PUSH ONE (12:00)
[2017-01-22] MEDS ORDERED: POTASSIUM CHLORIDE 8 MEQ CONTROLLED RELEASE TAB PO ONE (12:00)
[2017-01-22] MEDS ORDERED: RESP: ALBUTEROL 2.5 MG/IPRATROPIUM 0.5 MG NEB (PRN) NEB (12:15)
--- NOTE | 2017-01-22 12:54 | RADRPT ---
EXAM DATE/TIME: 01/22/2017 11:41 [facility] COMPARISON: CHEST SINGLE AP, January 21, 2017, 5:11. INDICATIONS : Status post chest tube removal. Evaluate for pneumothorax. MEDICAL HISTORY : Hypertension. SURGICAL HISTORY : CABG. ENCOUNTER: Subsequent ACUITY: 3 days PAIN SCORE: 0/10 LOCATION: chest FINDINGS: Median sternotomy wires are noted status post cardiac surgery. The heart is enlarged. Scattered atel ectactic changes are noted bilaterally. No pneumothorax is noted. CONCLUSION: 1. Scattered atelectactic changes bilaterally. 2. Cardiomegaly. 3. No pneumothorax is noted. Angelito Campuzano MD on January 22, 2017 at 12:44 Board Certified Radiologist. This report was verified electronically.
--- NOTE | 2017-01-22 13:41 | PD.CAR.PN ---
CVT Progress Note CVT: POD #: 2 Subjective/Hospital Course: 56/ male s/p recent heart cath for unstable angina , hx of PCI stents LAD/ RCA PMH : CAD/ [place], HTN, HLP EF 45 surgery : Off-pump Coronary Artery Bypass Grafting x 4 with left internal mammary artery (ARANA) to left anterior descending (LAD), reverse saphenous vein graft to Diagonal 1, sequential reverse saphenous vein graft to the RPDA and to the RPLB branches of the RCA, Right Leg Endoscopic Vein [place], Transmyocardial Laser Revascularization (Lateral Wall) 01/21 extubated post surgery, was very sleepy , required short course of Bipap had episode of nonsustained Vtach , now sinus joshua , on po amiodarone eval to start BB this pm ECG noted, mild st elevation lateral leads / 2/2 pericarditis / recent TMR gentle diuresis , will transfer to stepdown 01/22 chest tube dc without difficulty CXR noted post / bilateral atelectasis / WBC 18 K low grade temp last pm aggressive pulm toileting, OOB/ ambulate no further arrhythmia CVC line dc requiring Venti mask and intermittent 6 liters 02 will add Bipap at night Objective: Vital Signs Date Time Temp Pulse Resp B/P Pulse Ox O2 Delivery O2 Flow Rate FiO2 01/22/17 07:56 98.5 76 16 150/91 94 01/22/17 07:56 94 Nasal Cannula 6.00 01/22/17 07:31 93 Nasal Cannula 6.00 01/22/17 06:00 80 01/22/17 05:02 72 01/22/17 04:28 75 01/22/17 03:45 99.2 83 18 146/88 93 01/22/17 03:45 93 10.00 01/22/17 03:07 73 01/22/17 02:00 82 01/22/17 01:15 74 01/22/17 00:32 66 140/80 01/22/17 00:16 64 01/21/17 23:20 99.3 76 18 157/87 92 01/21/17 23:20 92 10.00 01/21/17 23:00 70 01/21/17 22:00 93 10.00 01/21/17 22:00 82 01/21/17 21:00 70 01/21/17 21:00 90 6.00 01/21/17 20:00 72 01/21/17 19:54 92 Nasal Cannula 6.00 01/21/17 19:30 92 Nasal Cannula 5.50 01/21/17 19:30 99.6 74 22 141/88 91 01/21/17 19:00 78 01/21/17 18:43 16 01/21/17 18:22 69 01/21/17 17:32 75 01/21/17 16:02 63 01/21/17 15:30 97.7 66 20 137/77 92 01/21/17 15:30 82 01/21/17 14:00 72 01/21/17 13:20 72 Labs: Laboratory Tests Test 01/22/17 04:15 White Blood Count 18.2 TH/MM3 (4.0-11.0) Red Blood Count 3.98 MIL/MM3 (4.50-5.90) Hemoglobin 11.8 GM/DL (13.0-17.0) Hematocrit 34.7 % (39.0-51.0) Mean Corpuscular Volume 87.2 FL (80.0-100.0) Mean Corpuscular Hemoglobin 29.5 PG (27.0-34.0) Mean Corpuscular Hemoglobin 33.9 % Concent (32.0-36.0) Red Cell Distribution Width 13.1 % (11.6-17.2) Platelet Count 130 TH/MM3 (150-450) Mean Platelet Volume 7.5 FL (7.0-11.0) Neutrophils (%) (Auto) 76.3 % (16.0-70.0) Lymphocytes (%) (Auto) 9.0 % (9.0-44.0) Monocytes (%) (Auto) 14.4 % (0.0-8.0) Eosinophils (%) (Auto) 0.1 % (0.0-4.0) Basophils (%) (Auto) 0.2 % (0.0-2.0) Neutrophils # (Auto) 13.9 TH/MM3 (1.8-7.7) Lymphocytes # (Auto) 1.6 TH/MM3 (1.0-4.8) Monocytes # (Auto) 2.6 TH/MM3 (0-0.9) Eosinophils # (Auto) 0.0 TH/MM3 (0-0.4) Basophils # (Auto) 0.0 TH/MM3 (0-0.2) CBC Comment AUTO DIFF Differential Total Cells 100 Counted Neutrophils % (Manual) 64 % (16-70) Band Neutrophils % 6 % (0-6) Lymphocytes % 15 % (9-44) Monocytes % 14 % (0-8) Basophils % 1 % (0-2) Neutrophils # (Manual) 12.7 TH/MM3 (1.8-7.7) Differential Comment FINAL DIFF MANUAL Platelet Estimate LOW (NORMAL) Platelet Morphology Comment NORMAL (NORMAL) Red Cell Morphology Comment NORMAL (NORMAL) Sodium Level 134 MEQ/L (136-145) Potassium Level 4.1 MEQ/L (3.5-5.1) Chloride Level 97 MEQ/L (98-107) Carbon Dioxide Level 29.7 MEQ/L (21.0-32.0) Anion Gap 7 MEQ/L (5-15) Blood Urea Nitrogen 23 MG/DL (7-18) Creatinine 1.26 MG/DL (0.60-1.30) Estimat Glomerular Filtration 59 ML/MIN (>89) Rate Random Glucose 127 MG/DL (74-106) Calcium Level 8.5 MG/DL (8.5-10.1) Magnesium Level 2.1 MG/DL (1.5-2.5) Result Diagram: 01/22/1741401/22/17414 (1) Coronary artery disease (2) cabgx 5, TMR Plan: ASA, plavix , statin, amiodarone gentle diuresis pulm toileting nebs, ezpap , acapella OOB ambulate (3) Hyperlipemia Plan: statin (4) Obstructive sleep apnea Plan: pt to use home CPAP machine at night / will use our Bipap at night 08/07 (5) Leukocytosis Plan: aggressive pulm toileting (6) Afib Plan: rate controlled will start lovenox this pm ( DVT dose ) Cecelia Conti Jan 22, 2017 13:41
[2017-01-22] MEDS ORDERED: LACTULOSE SYRUP 20 GM/30 ML CUP PO ONE (15:00)
[2017-01-22] MEDS ORDERED: AMIODARONE INJ 150 MG in DEXTROSE 5% IN WATER 100ML INJ 97 ML IV ONE ×2 (16:00)
[2017-01-22] MEDS: ENOXAPARIN SODIUM 40 MG/0.4 ML SYRINGE SQ SCH (17:27)
[2017-01-22] MEDS: SENNOSIDES 8.6 MG TAB PO SCH (21:22)
[2017-01-22] MEDS: INDOMETHACIN 25 MG CAP PO SCH (21:23)
[2017-01-23] VITALS (29 sets, daily range): BP systolic 116–138; BP diastolic 74–85; PULSE 58–79; RESP 18–19; TEMP 97.7–99.4; O2SAT 93–100
[2017-01-23] MEDS: AMIODARONE 200 MG TAB PO SCH ×2 (04:16→22:12)
[2017-01-23] MEDS: INDOMETHACIN 25 MG CAP PO SCH ×3 (04:16→22:13)
[2017-01-23] MEDS: PANTOPRAZOLE SOD 40 MG DELAYED RELEASE TAB PO SCH (04:16)
[2017-01-23] MEDS: LACTATED RINGER'S 1000 ML IV SCH (04:17)
--- NOTE | 2017-01-23 06:11 | RADRPT ---
EXAM DATE/TIME: 01/23/2017 05:22 [facility] COMPARISON: CHEST SINGLE AP, January 22, 2017, 11:41. INDICATIONS : Shortness of breath, possible pulmonary disease. MEDICAL HISTORY : Hypertension. SURGICAL HISTORY : CABG. ENCOUNTER: Subsequent ACUITY: 4 - 6 days PAIN SCORE: 0/10 LOCATION: Bilateral chest FINDINGS: Cardiomegaly, patchy left lower lobe airspace disease and sternotomy wires. Stable left midlung paren chymal density. Right lung is clear. Sternotomy wires. CONCLUSION: Improved aeration of the right lung. Marty Wayne MD on January 23, 2017 at 6:10 Board Certified Radiologist. This report was verified electronically.
[2017-01-23 06:48] LABS: BASOPHIL % 0.2 % (0.0-2.0); EOSINOPHIL % 0.3 % (0.0-4.0); HEMATOCRIT 33.8 % (39.0-51.0); HEMO FLAGS DIFF FINAL; LYMPH % 10.3 % (9.0-44.0); LYMPHOCYTE # 1.5 TH/MM3 (1.0-4.8); MEAN CELL VOLUME 87.3 FL (80.0-100.0); MEAN CORPUSCULAR HEMOGLOBIN 29.3 PG (27.0-34.0); MEAN CORPUSCULAR HGB CONC 33.6 % (32.0-36.0); MONO % 11.9 % (0.0-8.0); NEUT % 77.3 % (16.0-70.0); PLATELET COUNT 110 TH/MM3 (150-450); RED BLOOD COUNT 3.87 MIL/MM3 (4.50-5.90); RED CELL DISTRIBUTION WIDTH 13.1 % (11.6-17.2); WHITE BLOOD COUNT 14.3 TH/MM3 (4.0-11.0)
[2017-01-23] MEDS: INSULIN ASPART SUPPLEMENTAL SCALE SQ SCH ×4 (07:00→22:12)
[2017-01-23 07:17] LABS: BICARBONATE 31.8 MEQ/L (21.0-32.0); POTASSIUM 4.4 MEQ/L (3.5-5.1)
[2017-01-23] MEDS: RESP: ALBUTEROL 2.5 MG/IPRATROPIUM 0.5 MG NEB (SCH) NEB ×3 (07:22→18:56)
[2017-01-23] MEDS: LACTULOSE SYRUP 20 GM/30 ML CUP PO SCH ×2 (09:00→09:04)
[2017-01-23] MEDS: SODIUM CHLORIDE 0.9% FLUSH 5 ML FLUSH IV FLUSH SCH ×2 (09:00→22:14)
[2017-01-23] MEDS: POLYETHYLENE GLYCOL 17 GM PKG PO SCH (09:03)
[2017-01-23] MEDS: MAGNESIUM HYDROXIDE SUSP 30 ML CUP PO SCH (09:03)
[2017-01-23] MEDS: DOCUSATE SODIUM 100 MG CAP PO SCH ×2 (09:03→22:13)
[2017-01-23] MEDS: METOPROLOL TARTRATE 25 MG TAB PO SCH ×2 (09:04→22:13)
[2017-01-23] MEDS: ASPIRIN 81 MG CHEW TAB PO SCH (09:04)
[2017-01-23] MEDS: PRAVASTATIN SOD 80 MG TAB PO SCH (09:05)
[2017-01-23] MEDS: amLODIPine BESYLATE 5 MG TAB PO SCH (09:05)
[2017-01-23] MEDS: CLOPIDOGREL 75 MG TAB PO SCH (09:05)
[2017-01-23] MEDS: MULTIVITAMINS/MINERALS THERAPEUTIC TAB PO SCH (09:05)
[2017-01-23] MEDS: ENOXAPARIN SODIUM 40 MG/0.4 ML SYRINGE SQ SCH (09:06)
[2017-01-23] MEDS: oxyCODONE/ACETAMINOPHEN 5 MG/325 MG TAB PO PRN (09:07)
[2017-01-23] MEDS ORDERED: ROLLER WALKER1 MI1 (10:14)
--- NOTE | 2017-01-23 10:14 | PD.CAR.PN ---
CVT Progress Note CVT: POD #: 3 Subjective/Hospital Course: 56/ male s/p recent heart cath for unstable angina , hx of PCI stents LAD/ RCA PMH : CAD/ [place] GE[place], HTN, HLP EF 45 surgery : Off-pump Coronary Artery Bypass Grafting x 4 with left internal mammary artery (ARANA) to left anterior descending (LAD), reverse saphenous vein graft to Diagonal 1, sequential reverse saphenous vein graft to the RPDA and to the RPLB branches of the RCA, Right Leg Endoscopic Vein [place], Transmyocardial Laser Revascularization (Lateral Wall) 01/21 extubated post surgery, was very sleepy , required short course of Bipap had episode of nonsustained Vtach , now sinus joshua , on po amiodarone eval to start BB this pm ECG noted, mild st elevation lateral leads / 2/2 pericarditis / recent TMR gentle diuresis , will transfer to stepdown 01/22 chest tube dc without difficulty CXR noted post / bilateral atelectasis / WBC 18 K low grade temp last pm aggressive pulm toileting, OOB/ ambulate no further arrhythmia CVC line dc requiring Venti mask and intermittent 6 liters 02 will add Bipap at night 01/23 cxr improved, remains on 5 liter 02, used Bipap last pm, did not sleep well converted to NSR this am will decrease amiodarone q12 Objective: GENERAL: SKIN: Warm and dry./ prevena to chest HEAD: Normocephalic. EYES: No scleral icterus. No injection or drainage. NECK: Supple, trachea midline. No JVD or lymphadenopathy. CARDIOVASCULAR: Regular rate and rhythm without murmurs, gallops, or rubs. mild edema RESPIRATORY: diminished in bases Breath sounds equal bilaterally. No accessory muscle use. GASTROINTESTINAL: Abdomen soft, non-tender, nondistended. MUSCULOSKELETAL: No cyanosis, or edema. BACK: Nontender without obvious deformity. No CVA tenderness. Vital Signs Date Time Temp Pulse Resp B/P Pulse Ox O2 Delivery O2 Flow Rate FiO2 01/23/17 09:27 72 01/23/17 08:20 66 01/23/17 07:30 97.7 66 19 119/74 95 01/23/17 07:30 95 Nasal Cannula 5.00 Humidified 01/23/17 07:24 97 Nasal Cannula 6.00 01/23/17 07:00 65 01/23/17 06:00 61 01/23/17 05:00 59 01/23/17 04:00 72 01/23/17 04:00 100 Bi-Pap 01/23/17 04:00 97.8 72 18 116/80 100 01/23/17 03:34 93 75 01/23/17 02:00 66 01/23/17 01:00 61 01/23/17 00:00 68 01/22/17 23:00 98 Bi-Pap 01/22/17 23:00 98.9 75 18 113/72 98 01/22/17 23:00 78 01/22/17 22:00 82 01/22/17 21:00 80 01/22/17 20:15 96 75 01/22/17 20:07 99 BiPAP 75 01/22/17 20:00 84 01/22/17 19:00 96 Bi-Pap 01/22/17 19:00 98.8 88 18 130/78 96 01/22/17 19:00 88 01/22/17 18:27 93 60 01/22/17 18:16 Bi-Pap 60 01/22/17 18:00 80 01/22/17 17:00 93 Nasal Cannula 6.00 01/22/17 17:00 80 01/22/17 16:00 76 01/22/17 15:35 99.3 97 16 120/82 95 01/22/17 15:35 95 Non-Rebreather 10.00 01/22/17 15:00 84 01/22/17 14:00 88 01/22/17 13:00 86 01/22/17 13:00 94 Partial Non-Rebreather 15.00 01/22/17 12:00 102 01/22/17 11:45 90 01/22/17 11:15 90 Nasal Cannula 6.00 01/22/17 11:00 98.5 86 16 145/98 94 01/22/17 11:00 83 01/22/17 11:00 94 Non-Rebreather 15.00 Labs: Laboratory Tests Test 01/23/17 06:15 White Blood Count 14.3 TH/MM3 (4.0-11.0) Red Blood Count 3.87 MIL/MM3 (4.50-5.90) Hemoglobin 11.4 GM/DL (13.0-17.0) Hematocrit 33.8 % (39.0-51.0) Mean Corpuscular Volume 87.3 FL (80.0-100.0) Mean Corpuscular Hemoglobin 29.3 PG (27.0-34.0) Mean Corpuscular Hemoglobin 33.6 % Concent (32.0-36.0) Red Cell Distribution Width 13.1 % (11.6-17.2) Platelet Count 110 TH/MM3 (150-450) Mean Platelet Volume 8.0 FL (7.0-11.0) Neutrophils (%) (Auto) 77.3 % (16.0-70.0) Lymphocytes (%) (Auto) 10.3 % (9.0-44.0) Monocytes (%) (Auto) 11.9 % (0.0-8.0) Eosinophils (%) (Auto) 0.3 % (0.0-4.0) Basophils (%) (Auto) 0.2 % (0.0-2.0) Neutrophils # (Auto) 11.0 TH/MM3 (1.8-7.7) Lymphocytes # (Auto) 1.5 TH/MM3 (1.0-4.8) Monocytes # (Auto) 1.7 TH/MM3 (0-0.9) Eosinophils # (Auto) 0.0 TH/MM3 (0-0.4) Basophils # (Auto) 0.0 TH/MM3 (0-0.2) CBC Comment DIFF FINAL Differential Comment Sodium Level 136 MEQ/L (136-145) Potassium Level 4.4 MEQ/L (3.5-5.1) Chloride Level 98 MEQ/L (98-107) Carbon Dioxide Level 31.8 MEQ/L (21.0-32.0) Anion Gap 6 MEQ/L (5-15) Blood Urea Nitrogen 23 MG/DL (7-18) Creatinine 1.10 MG/DL (0.60-1.30) Estimat Glomerular Filtration 69 ML/MIN (>89) Rate Random Glucose 135 MG/DL (74-106) Calcium Level 8.8 MG/DL (8.5-10.1) Result Diagram: 01/23/1761401/23/17614 Telemetry: Afib > NSR (1) Coronary artery disease (2) cabgx 5, TMR Plan: ASA, plavix , statin, amiodarone pulm toileting nebs, ezpap , acapella OOB ambulate (3) Hyperlipemia Plan: statin (4) Obstructive sleep apnea Plan: pt to use home CPAP machine at night / will use our Bipap at night 08/07 (5) Leukocytosis Plan: aggressive pulm toileting improving, afebrile (6) Afib Plan: converted to NSR Cecelia Burt Jan 23, 2017 10:13
--- NOTE | 2017-01-23 20:28 | EKG ---
Date Performed: 01/22/2017 Time Performed: 13:24:08 PTAGE: 56 years EKG: CONSIDER ACUTE ST ELEVATION [place] Atrial fibrillation. Possible inferior infarct - age undetermined Anterolateral ST elevation, CONSIDER ACUTE INFARCT When compared to previous tracing, a trial fibrillation has replaced Sinus rhythm . High lateral ST elevation seen on previous tracing are more Prominant. Consider acute injury. Clin ical correlation is required. Abnormal ECG PREVIOUS TRACING : 01/21/2017 05.17 DOCTOR: Ge Aleman Interpretating Date/Time 01/23/2017 20:27:02
[2017-01-23] MEDS: SENNOSIDES 8.6 MG TAB PO SCH (22:13)
[2017-01-24] VITALS (29 sets, daily range): BP systolic 121–138; BP diastolic 69–79; PULSE 59–78; RESP 16–18; TEMP 98.5–99.4; O2SAT 93–96
[2017-01-24] MEDS: PANTOPRAZOLE SOD 40 MG DELAYED RELEASE TAB PO SCH (05:45)
[2017-01-24] MEDS: INDOMETHACIN 25 MG CAP PO SCH ×3 (05:45→21:49)
[2017-01-24] MEDS: INSULIN ASPART SUPPLEMENTAL SCALE SQ SCH ×4 (06:21→21:50)
[2017-01-24] MEDS: RESP: ALBUTEROL 2.5 MG/IPRATROPIUM 0.5 MG NEB (SCH) NEB (07:11)
[2017-01-24] MEDS: MAGNESIUM HYDROXIDE SUSP 30 ML CUP PO SCH (09:00)
[2017-01-24] MEDS: PRAVASTATIN SOD 80 MG TAB PO SCH (09:56)
[2017-01-24] MEDS: METOPROLOL TARTRATE 25 MG TAB PO SCH ×2 (09:56→21:49)
[2017-01-24] MEDS: CLOPIDOGREL 75 MG TAB PO SCH (09:56)
[2017-01-24] MEDS: DOCUSATE SODIUM 100 MG CAP PO SCH ×2 (09:56→21:00)
[2017-01-24] MEDS: amLODIPine BESYLATE 5 MG TAB PO SCH (09:56)
[2017-01-24] MEDS: ASPIRIN 81 MG CHEW TAB PO SCH (09:57)
[2017-01-24] MEDS: AMIODARONE 200 MG TAB PO SCH ×2 (09:57→21:49)
[2017-01-24] MEDS: MULTIVITAMINS/MINERALS THERAPEUTIC TAB PO SCH (09:57)
[2017-01-24] MEDS: POLYETHYLENE GLYCOL 17 GM PKG PO SCH (10:00)
[2017-01-24] MEDS ORDERED: FUROSEMIDE 40 MG/4 ML VIAL IV PUSH ONE (10:00)
[2017-01-24] MEDS: SODIUM CHLORIDE 0.9% FLUSH 5 ML FLUSH IV FLUSH SCH ×2 (10:00→21:50)
[2017-01-24] MEDS ORDERED: POTASSIUM CHLORIDE 10 MEQ CONTROLLED RELEASE TAB PO ONE (10:00)
[2017-01-24] MEDS: ENOXAPARIN SODIUM 40 MG/0.4 ML SYRINGE SQ SCH (10:00)
[2017-01-24 11:38] LABS: AUTOMATED NEUTROPHIL # 7.4 TH/MM3 (1.8-7.7); BASOPHIL % 0.4 % (0.0-2.0); EOSINOPHIL # 0.1 TH/MM3 (0-0.4); EOSINOPHIL % 0.9 % (0.0-4.0); HEMATOCRIT 32.3 % (39.0-51.0); HEMO FLAGS DIFF FINAL; LYMPH % 12.5 % (9.0-44.0); LYMPHOCYTE # 1.2 TH/MM3 (1.0-4.8); MEAN CELL VOLUME 87.6 FL (80.0-100.0); MEAN CORPUSCULAR HEMOGLOBIN 30.5 PG (27.0-34.0); MEAN CORPUSCULAR HGB CONC 34.8 % (32.0-36.0); MONO % 8.1 % (0.0-8.0); NEUT % 78.1 % (16.0-70.0); PLATELET COUNT 154 TH/MM3 (150-450); RED BLOOD COUNT 3.68 MIL/MM3 (4.50-5.90); RED CELL DISTRIBUTION WIDTH 13.3 % (11.6-17.2); WHITE BLOOD COUNT 9.5 TH/MM3 (4.0-11.0)
--- NOTE | 2017-01-24 16:52 | PD.CAR.PN ---
CVT Progress Note CVT: POD #: 4 Subjective/Hospital Course: 56/ male s/p recent heart cath for unstable angina , hx of PCI stents LAD/ RCA PMH : CAD/ [place] GE[place], HTN, HLP EF 45 surgery : Off-pump Coronary Artery Bypass Grafting x 4 with left internal mammary artery (ARANA) to left anterior descending (LAD), reverse saphenous vein graft to Diagonal 1, sequential reverse saphenous vein graft to the RPDA and to the RPLB branches of the RCA, Right Leg Endoscopic Vein [place], Transmyocardial Laser Revascularization (Lateral Wall) 01/21 extubated post surgery, was very sleepy , required short course of Bipap had episode of nonsustained Vtach , now sinus joshua , on po amiodarone eval to start BB this pm ECG noted, mild st elevation lateral leads / 2/2 pericarditis / recent TMR gentle diuresis , will transfer to stepdown 01/22 chest tube dc without difficulty CXR noted post / bilateral atelectasis / WBC 18 K low grade temp last pm aggressive pulm toileting, OOB/ ambulate no further arrhythmia CVC line dc requiring Venti mask and intermittent 6 liters 02 will add Bipap at night 01/23 cxr improved, remains on 5 liter 02, used Bipap last pm, did not sleep well converted to NSR this am will decrease amiodarone q12 01/24 remains in NSR will taper dose amiodarone now on room air diuresed this am plan for dc in am SNF vs home with HHC/ Family deciding Objective: GENERAL: SKIN: Warm and dry./ prevena dressing to chest / incision to right leg intact HEAD: Normocephalic. EYES: No scleral icterus. No injection or drainage. NECK: Supple, trachea midline. No JVD or lymphadenopathy. CARDIOVASCULAR: Regular rate and rhythm without murmurs, gallops, or rubs. RESPIRATORY: diminished in bases, otherwise CTA Breath sounds equal bilaterally. No accessory muscle use. GASTROINTESTINAL: Abdomen soft, non-tender, nondistended. MUSCULOSKELETAL: No cyanosis, or edema. BACK: Nontender without obvious deformity. No CVA tenderness. Vital Signs Date Time Temp Pulse Resp B/P Pulse Ox O2 Delivery O2 Flow Rate FiO2 01/24/17 15:33 94 Nasal Cannula 2.00 01/24/17 15:33 98.9 73 18 121/70 94 3/24/17 15:18 68 01/24/17 14:20 70 01/24/17 13:11 77 01/24/17 12:04 71 01/24/17 11:53 99.4 72 18 121/69 96 01/24/17 11:53 96 Nasal Cannula 2.00 01/24/17 11:09 69 01/24/17 10:21 78 01/24/17 09:53 72 01/24/17 08:30 71 01/24/17 08:25 99.0 66 18 138/79 96 01/24/17 08:25 96 Nasal Cannula 3.00 01/24/17 07:15 96 21 01/24/17 07:13 61 01/24/17 06:27 60 01/24/17 05:20 59 01/24/17 04:00 67 01/24/17 03:28 98.5 65 18 122/76 95 01/24/17 03:28 95 3.00 01/24/17 03:00 61 01/24/17 02:02 70 01/24/17 01:08 64 01/24/17 00:28 67 01/23/17 23:20 94 3.00 01/23/17 23:20 70 01/23/17 23:00 69 01/23/17 23:00 98.5 77 18 125/80 96 01/23/17 22:00 74 01/23/17 21:00 72 01/23/17 20:00 76 01/23/17 19:20 Nasal Cannula 3.00 01/23/17 19:00 79 01/23/17 19:00 99.4 78 18 136/79 96 01/23/17 18:56 96 Nasal Cannula 3.00 01/23/17 18:38 96 3.00 01/23/17 18:22 74 01/23/17 17:30 96 Nasal Cannula 4.00 01/23/17 17:21 74 Labs: Laboratory Tests Test 01/24/17 10:25 White Blood Count 9.5 TH/MM3 (4.0-11.0) Red Blood Count 3.68 MIL/MM3 (4.50-5.90) Hemoglobin 11.2 GM/DL (13.0-17.0) Hematocrit 32.3 % (39.0-51.0) Mean Corpuscular Volume 87.6 FL (80.0-100.0) Mean Corpuscular Hemoglobin 30.5 PG (27.0-34.0) Mean Corpuscular Hemoglobin 34.8 % Concent (32.0-36.0) Red Cell Distribution Width 13.3 % (11.6-17.2) Platelet Count 154 TH/MM3 (150-450) Mean Platelet Volume 8.2 FL (7.0-11.0) Neutrophils (%) (Auto) 78.1 % (16.0-70.0) Lymphocytes (%) (Auto) 12.5 % (9.0-44.0) Monocytes (%) (Auto) 8.1 % (0.0-8.0) Eosinophils (%) (Auto) 0.9 % (0.0-4.0) Basophils (%) (Auto) 0.4 % (0.0-2.0) Neutrophils # (Auto) 7.4 TH/MM3 (1.8-7.7) Lymphocytes # (Auto) 1.2 TH/MM3 (1.0-4.8) Monocytes # (Auto) 0.8 TH/MM3 (0-0.9) Eosinophils # (Auto) 0.1 TH/MM3 (0-0.4) Basophils # (Auto) 0.0 TH/MM3 (0-0.2) CBC Comment DIFF FINAL Differential Comment Result Diagram: 01/24/17 1025 01/23/17 0615 Telemetry: NSR (1) Coronary artery disease (2) cabgx 5, TMR Plan: ASA, plavix , statin, taper dose amiodarone pulm toileting nebs, ezpap , acapella OOB ambulate off 02 eval for dc in am Home with HHC vs SNF ( per family request ) (3) Hyperlipemia Plan: statin (4) Obstructive sleep apnea Plan: pt to use home CPAP machine at night (5) Leukocytosis Plan: resolved (6) Afib Plan: converted to NSR / taper dose amiodarone and scheduled BB Cecelia Conti Jan 24, 2017 16:52
[2017-01-24] MEDS ORDERED: PLAV75TA29 PO (17:07)
[2017-01-24] MEDS ORDERED: INDO25CA PO (17:07)
[2017-01-24] MEDS ORDERED: METO25TA3 PO (17:07)
[2017-01-24] MEDS ORDERED: DOCU1CAP39 PO (17:07)
[2017-01-24] MEDS ORDERED: THERM PO (17:07)
[2017-01-24] MEDS ORDERED: AMIO200T PO (17:07)
[2017-01-24] MEDS: SENNOSIDES 8.6 MG TAB PO SCH (21:00)
[2017-01-25] VITALS (27 sets, daily range): BP systolic 122–142; BP diastolic 72–85; PULSE 57–82; RESP 16–18; TEMP 98.4–99.2; O2SAT 93–96
[2017-01-25] MEDS: INDOMETHACIN 25 MG CAP PO SCH ×3 (05:52→21:03)
[2017-01-25] MEDS: PANTOPRAZOLE SOD 40 MG DELAYED RELEASE TAB PO SCH (05:52)
[2017-01-25] MEDS: INSULIN ASPART SUPPLEMENTAL SCALE SQ SCH ×4 (05:53→21:00)
[2017-01-25 06:36] LABS: MAGNESIUM 1.7 MG/DL (1.5-2.5); POTASSIUM 3.9 MEQ/L (3.5-5.1)
[2017-01-25] MEDS: ASPIRIN 81 MG CHEW TAB PO SCH (08:54)
[2017-01-25] MEDS: DOCUSATE SODIUM 100 MG CAP PO SCH ×2 (08:55→21:00)
[2017-01-25] MEDS: CLOPIDOGREL 75 MG TAB PO SCH (08:55)
[2017-01-25] MEDS: amLODIPine BESYLATE 5 MG TAB PO SCH (08:55)
[2017-01-25] MEDS: METOPROLOL TARTRATE 25 MG TAB PO SCH ×2 (08:55→21:03)
[2017-01-25] MEDS: MULTIVITAMINS/MINERALS THERAPEUTIC TAB PO SCH (08:55)
[2017-01-25] MEDS: PRAVASTATIN SOD 80 MG TAB PO SCH (08:55)
[2017-01-25] MEDS: AMIODARONE 200 MG TAB PO SCH ×2 (08:56→21:03)
[2017-01-25] MEDS: MAGNESIUM HYDROXIDE SUSP 30 ML CUP PO SCH (08:56)
[2017-01-25] MEDS: LACTULOSE SYRUP 20 GM/30 ML CUP PO SCH (08:56)
[2017-01-25] MEDS: POLYETHYLENE GLYCOL 17 GM PKG PO SCH (08:56)
[2017-01-25] MEDS: ENOXAPARIN SODIUM 40 MG/0.4 ML SYRINGE SQ SCH (08:57)
[2017-01-25] MEDS: SODIUM CHLORIDE 0.9% FLUSH 5 ML FLUSH IV FLUSH SCH ×2 (08:57→21:04)
--- NOTE | 2017-01-25 11:29 | PD.CAR.PN ---
CVT Progress Note CVT: POD #: 5 Subjective/Hospital Course: 56/ male s/p recent heart cath for unstable angina , hx of PCI stents LAD/ RCA PMH : CAD/ [place], HTN, HLP EF 45 surgery : Off-pump Coronary Artery Bypass Grafting x 4 with left internal mammary artery (ARANA) to left anterior descending (LAD), reverse saphenous vein graft to Diagonal 1, sequential reverse saphenous vein graft to the RPDA and to the RPLB branches of the RCA, Right Leg Endoscopic Vein [place], Transmyocardial Laser Revascularization (Lateral Wall) 01/21 extubated post surgery, was very sleepy , required short course of Bipap had episode of nonsustained Vtach , now sinus joshua , on po amiodarone eval to start BB this pm ECG noted, mild st elevation lateral leads / 2/2 pericarditis / recent TMR gentle diuresis , will transfer to stepdown 01/22 chest tube dc without difficulty CXR noted post / bilateral atelectasis / WBC 18 K low grade temp last pm aggressive pulm toileting, OOB/ ambulate no further arrhythmia CVC line dc requiring Venti mask and intermittent 6 liters 02 will add Bipap at night 01/23 cxr improved, remains on 5 liter 02, used Bipap last pm, did not sleep well converted to NSR this am will decrease amiodarone q12 01/24 remains in NSR will taper dose amiodarone now on room air diuresed this am plan for dc in am SNF vs home with HHC/ Family deciding 01/25/27 No complaints, doing well Objective: Vital Signs Date Time Temp Pulse Resp B/P Pulse Ox O2 Delivery O2 Flow Rate FiO2 01/25/17 10:06 95 21 01/25/17 10:00 67 01/25/17 09:00 68 01/25/17 08:00 68 01/25/17 07:31 98.6 68 18 141/81 96 01/25/17 07:00 72 01/25/17 06:00 65 01/25/17 05:00 60 01/25/17 04:00 59 01/25/17 03:00 96 01/25/17 03:00 57 01/25/17 03:00 98.6 64 16 137/79 96 01/25/17 02:00 58 01/25/17 01:00 62 01/25/17 00:00 66 01/24/17 23:00 98.8 64 16 133/74 95 01/24/17 23:00 66 01/24/17 23:00 95 01/24/17 22:55 96 21 01/24/17 22:00 76 01/24/17 21:00 70 01/24/17 20:00 74 01/24/17 19:00 99.1 72 18 124/74 93 01/24/17 19:00 75 01/24/17 19:00 93 Room Air 01/24/17 18:04 71 01/24/17 17:08 68 01/24/17 15:33 94 Nasal Cannula 2.00 01/24/17 15:33 98.9 73 18 121/70 94 01/24/17 15:18 68 01/24/17 14:20 70 01/24/17 13:11 77 01/24/17 12:04 71 01/24/17 11:53 99.4 72 18 121/69 96 01/24/17 11:53 96 Nasal Cannula 2.00 Labs: Laboratory Tests Test 01/25/17 05:14 Sodium Level 139 MEQ/L (136-145) Potassium Level 3.9 MEQ/L (3.5-5.1) Chloride Level 102 MEQ/L (98-107) Carbon Dioxide Level 29.0 MEQ/L (21.0-32.0) Anion Gap 8 MEQ/L (5-15) Blood Urea Nitrogen 24 MG/DL (7-18) Creatinine 0.94 MG/DL (0.60-1.30) Estimat Glomerular Filtration 83 ML/MIN (>89) Rate Random Glucose 92 MG/DL (74-106) Calcium Level 8.1 MG/DL (8.5-10.1) Magnesium Level 1.7 MG/DL (1.5-2.5) Result Diagram: 01/24/17 1025 01/25/17 0514 Cardiovascular: RRR Telemetry: NSR Pulmonary: CTA GI/: NABS, NT Incision: dry and intact Plan: Discharge planning No changes to meds today (1) Coronary artery disease (2) cabgx 5, TMR Plan: ASA, plavix , statin, taper dose amiodarone pulm toileting nebs, ezpap , acapella OOB ambulate off 02 eval for dc in am Home with HHC vs SNF ( per family request ) (3) Hyperlipemia Plan: statin (4) Obstructive sleep apnea Plan: pt to use home CPAP machine at night (5) Leukocytosis Plan: resolved (6) Afib Plan: converted to NSR / taper dose amiodarone and scheduled BB Jossy Berman MD Jan 25, 2017 11:29
[2017-01-25] MEDS: SENNOSIDES 8.6 MG TAB PO SCH (21:00)
[2017-01-26] VITALS (10 sets, daily range): BP systolic 135–136; BP diastolic 78–80; PULSE 52–64; RESP 18; TEMP 98.7–99.1; O2SAT 94
[2017-01-26] MEDS: INDOMETHACIN 25 MG CAP PO SCH (05:40)
[2017-01-26] MEDS: INSULIN ASPART SUPPLEMENTAL SCALE SQ SCH (05:40)
[2017-01-26] MEDS: PANTOPRAZOLE SOD 40 MG DELAYED RELEASE TAB PO SCH (05:40)
[2017-01-26] MEDS: ENOXAPARIN SODIUM 40 MG/0.4 ML SYRINGE SQ SCH (08:55)
[2017-01-26] MEDS: MULTIVITAMINS/MINERALS THERAPEUTIC TAB PO SCH (08:55)
[2017-01-26] MEDS: ASPIRIN 81 MG CHEW TAB PO SCH (08:55)
[2017-01-26] MEDS: PRAVASTATIN SOD 80 MG TAB PO SCH (08:56)
[2017-01-26] MEDS: CLOPIDOGREL 75 MG TAB PO SCH (08:56)
[2017-01-26] MEDS: amLODIPine BESYLATE 5 MG TAB PO SCH (08:56)
[2017-01-26] MEDS: METOPROLOL TARTRATE 25 MG TAB PO SCH (08:56)
[2017-01-26] MEDS: AMIODARONE 200 MG TAB PO SCH (08:56)
[2017-01-26] MEDS: POLYETHYLENE GLYCOL 17 GM PKG PO SCH (08:57)
[2017-01-26] MEDS: MAGNESIUM HYDROXIDE SUSP 30 ML CUP PO SCH (08:57)
[2017-01-26] MEDS: DOCUSATE SODIUM 100 MG CAP PO SCH (08:57)
[2017-01-26] MEDS: LACTULOSE SYRUP 20 GM/30 ML CUP PO SCH (08:57)
[2017-01-26] MEDS: SODIUM CHLORIDE 0.9% FLUSH 5 ML FLUSH IV FLUSH SCH (09:00)
--- NOTE | 2017-01-26 11:13 | HHI.DS ---
Discharge Summary Admission Date Jan 20, 2017 at 05:11 Discharge Date: Jan 26, 2017 Admitting Diagnosis (1) Coronary artery disease Diagnosis: Principal (2) Afib Diagnosis: Secondary (3) cabgx 5, TMR Diagnosis: Principal Procedures CABG x 5 Brief History 56/ male s/p recent heart cath for unstable angina , hx of PCI stents LAD/ RCA PMH : CAD/ [place], HTN, HLP EF 45 l CBC/BMP: 01/24/17 1025 01/25/17 0514 Significant Findings Laboratory Tests Test 01/24/17 01/25/17 10:25 05:14 Red Blood Count 3.68 MIL/MM3 (4.50-5.90) Hemoglobin 11.2 GM/DL (13.0-17.0) Hematocrit 32.3 % (39.0-51.0) Neutrophils (%) (Auto) 78.1 % (16.0-70.0) Monocytes (%) (Auto) 8.1 % (0.0-8.0) Blood Urea Nitrogen 24 MG/DL (7-18) Estimat Glomerular Filtration 83 ML/MIN (>89) Rate Calcium Level 8.1 MG/DL (8.5-10.1) Imaging Last Impressions Chest X-Ray 01/23/17 0600 Signed Impressions: Service Date/Time: January 05:22 - CONCLUSION: Improved aeration of the right lung. Marty Wayne MD PE at Discharge chest - CTA COR - RRR ABD - soft, NT wound - dry and intact Hospital Course surgery : Off-pump Coronary Artery Bypass Grafting x 4 with left internal mammary artery (ARANA) to left anterior descending (LAD), reverse saphenous vein graft to Diagonal 1, sequential reverse saphenous vein graft to the RPDA and to the RPLB branches of the RCA, Right Leg Endoscopic Vein [place], Transmyocardial Laser Revascularization (Lateral Wall) 01/21 extubated post surgery, was very sleepy , required short course of Bipap had episode of nonsustained Vtach , now sinus joshua , on po amiodarone eval to start BB this pm ECG noted, mild st elevation lateral leads / 2/2 pericarditis / recent TMR gentle diuresis , will transfer to stepdown 01/22 chest tube dc without difficulty CXR noted post / bilateral atelectasis / WBC 18 K low grade temp last pm aggressive pulm toileting, OOB/ ambulate no further arrhythmia CVC line dc requiring Venti mask and intermittent 6 liters 02 will add Bipap at night 01/23 cxr improved, remains on 5 liter 02, used Bipap last pm, did not sleep well converted to NSR this am will decrease amiodarone q12 01/24 remains in NSR will taper dose amiodarone now on room air diuresed this am plan for dc in am SNF vs home with HHC/ Family deciding 01/25/27 No complaints, doing wel Pt Condition on Discharge: Good Discharge Disposition: Disch w/ Home Health Serv Discharge Instructions DIET: Follow Instructions for: Heart Healthy Diet Activities you can perform: Full Weight Bearing, Shower Only-No Bath Activities to avoid: Strenuous Activity, Driving Additional Activity Instructio: no lifting > 8 lbs or gallon of milk Follow up Referrals: Cardiology PCP Follow-up Surgical New Medications: Misc. Devices (Roller Walker) 1 Mis Mis 1 EA .ROUTE NOW #1 EA Amiodarone (Amiodarone) 200 Mg Tab 200 MG PO Q12HR 200mg twice a day x 5 days, then 200mg daily heart rhythm #40 TAB Clopidogrel (Plavix) 75 Mg Tab 75 MG PO DAILY Blood Clot Prevention #30 Ref 2 TAB Docusate Sodium (Dok) 100 Mg Cap 100 MG PO BID Constipation #60 Ref 0 CAP Indomethacin (Indomethacin) 25 Mg Cap 25 MG PO Q8HR pericarditis #7 CAP Metoprolol Tartrate (Metoprolol Tartrate) 25 Mg Tab 25 MG PO Q12HR Blood Pressure Management #60 Ref 2 TAB Multiple Vitamins W/ Minerals (Thera M Plus) 1 Tab 1 TAB PO DAILY multi vitamin #30 Ref 0 TAB Continued Medications: Amlodipine (Amlodipine) 10 Mg Tab 10 MG PO DAILY Blood Pressure Management #30 Ref 0 TAB Aspirin (Aspirin) 81 Mg Tabdr 81 MG PO DAILY TAB Pravastatin (Pravastatin) 80 Mg Tab 80 MG PO DAILY Cholesterol Management #30 Ref 0 TAB Discontinued Medications: Isosorbide Mononitrate ER (Isosorbide Mononitrate ER) 30 Mg Toribio 30 MG PO DAILY Prevent Chest Pain #30 Ref 0 TAB Nebivolol (Bystolic) 5 Mg Tab 5 MG PO DAILY Blood Pressure Management #30 Ref 0 TAB Nitroglycerin SL (Nitroglycerin SL) 0.4 Mg Subl 0.4 MG SL DIRECTED ONE TABLET UNDER THE TONGUE NEEDED FOR CHEST PAIN, MAY REPEAT EVERY FIVE MINUTES FOR A TOTAL OF 3 DOSES OR CALL 911 IF NO RELIEF PRN CHEST PAIN #100 Ref 0 TAB.SL Quinapril (Quinapril) 40 Mg Tab 40 MG PO DAILY #30 Ref 0 TAB Jossy Berman MD Jan 26, 2017 11:13
== END 2017-01-26 11:28 | disposition home health service (06) | DRG 229 ==
LOC: HSDI 01-20 05:11 → HCVR 01-20 12:28 → HCIN 01-21 11:12
PROVIDERS: ADMIT Thoracic Surgery (Cardiothoracic Vascular Surgery); ATTEND Thoracic Surgery (Cardiothoracic Vascular Surgery)
PROC: 021209W Bypass Coronary Artery, Three Arteries from Aorta with Autologous Venous Tissue, Open Approach (ICD-10-PCS; 2017-01-20)
PROC: 06BP4ZZ Excision of Right Saphenous Vein, Percutaneous Endoscopic Approach (ICD-10-PCS; 2017-01-20)
PROC: 02Q Heart and Great Vessels, Repair (ICD-10-PCS; principal; 2017-01-20 07:11)
PROC: 02100Z9 Bypass Coronary Artery, One Artery from Left Internal Mammary, Open Approach (ICD-10-PCS; 2017-01-20 07:11)
DX: I25.10 Atherosclerotic heart disease of native coronary artery without angina pectoris (principal); I47.2 Ventricular tachycardia; I31.9 Disease of pericardium, unspecified; T82.855A Stenosis of coronary artery stent, initial encounter; J98.11 Atelectasis; I48.91 Unspecified atrial fibrillation; R00.1 Bradycardia, unspecified; I34.1 Nonrheumatic mitral (valve) prolapse; I10 Essential (primary) hypertension; G47.33 Obstructive sleep apnea (adult) (pediatric); E78.5 Hyperlipidemia, unspecified; D72.829 Elevated white blood cell count, unspecified; I25.2 Old myocardial infarction; Z82.49 Family history of ischemic heart disease and other diseases of the circulatory system; Y83.8 Other surgical procedures as the cause of abnormal reaction of the patient, or of later complication, without mention of misadventure at the time of the procedure
CPT/HCPCS: 36430; 71010; 76937; 80048; 82948; 83735; 85007; 85014; 85025; 85027; 86850; 86900; 86901; 86920; 93005; 94002; 94003; 94150; 94640; 94664; 94667; 94668; C1768; J0131; J0282; J0690; J1644; J1650; J1815; J1885; J1940; J2250; J2270; J2440; J2720; J2765; J3010; J3370; J3475; J3480; J7040; J7050; J7120; P9016